=== PATIENT | female | born 2000 | race Two or more races ===

== ENCOUNTER 2023-08-31 08:49 | Emergency (ER) | payer BC ==
[~2023-08-31] VITALS: Ht 157.5 cm; Wt 70.3 kg
[2023-08-31] MEDS ORDERED: IBUPROFEN 600 MG TABLET ONE (09:20)
[2023-08-31] MEDS ORDERED: IBUPROFEN 600 MG TABLET PO ONE (09:30)
[2023-08-31] MEDS ORDERED: IBUP-1953 PO (10:52)
[2023-08-31 11:19] VITALS: BP 112/78; TEMP 98; O2SAT 100
== END 2023-08-31 11:19 | disposition home or self-care (01) ==
LOC: ER 09:05
DX: S13.8XXA Sprain of joints and ligaments of other parts of neck, initial encounter (principal); S83.8X2A Sprain of other specified parts of left knee, initial encounter; S83.8X1A Sprain of other specified parts of right knee, initial encounter; Z88.1 Allergy status to other antibiotic agents; V49.3XXA Car occupant (driver) (passenger) injured in unspecified nontraffic accident, initial encounter; Y93.89 Activity, other specified; Y92.89 Other specified places as the place of occurrence of the external cause; Y99.8 Other external cause status
CPT/HCPCS: 72125-TC; 73564-TC